=== PATIENT | male | born 1985 | race Two or more races ===

== ENCOUNTER 2017-10-17 22:46 | Emergency (ER) | payer OTHER ==
[~2017-10-17] VITALS: Ht 185.4 cm; Wt 77.1 kg
--- NOTE | 2017-10-17 22:58 | NUR ---
Dr. Villarreal at bedside for MSE.
[2017-10-17] MEDS ORDERED: LORAZEPAM 0.5 MG TABLET PO ONE (23:00)
[2017-10-17] MEDS ORDERED: LORAZEPAM 1 MG TABLET ONE (23:04)
--- NOTE | 2017-10-17 23:23 | NUR ---
Patient discharged to home in stable conditon. Written and verbal after care instructions given. Patient verbalizes understanding of instructions. Patient ambulated out of ER with steady gait, no acute signs of distress, VSS, all belongings taken.
[2017-10-17 23:24] VITALS: BP 155/88
== END 2017-10-17 23:25 | disposition home or self-care (01) ==
LOC: ER 22:48
DX: F10.239 Alcohol dependence with withdrawal, unspecified (principal)
CPT/HCPCS: 99283; A4663

== ENCOUNTER 2019-03-11 18:11 | Inpatient (IN) | payer OTHER ==
[~2019-03-11] VITALS: Ht 185.4 cm; Wt 89.8 kg
[2019-03-11] MEDS ORDERED: CLID1CAP PO (18:29)
[2019-03-11] MEDS ORDERED: IV NORMAL SALINE 1000 ML BAG IV ONE (18:45)
[2019-03-11 18:53] LABS: BASOPHILS # (AUTO) 0.1 K/uL (0.0-8.0); BASOPHILS % (AUTO) 1.1 % (0.0-2.0); EOSINOPHILS % (AUTO) 0.2 % (0.0-7.0); HEMATOCRIT 41.4 % (36.7-47.1); HEMOGLOBIN 13.6 g/dL (12.5-16.3); LYMPHOCYTES # (AUTO) 1.3 K/uL (20.0-40.0); LYMPHOCYTES % (AUTO) 20.7 % (20.5-51.5); MEAN CORPUSCULAR HGB CONC 33 g/dL (32.5-36.3); MEAN CORPUSCULAR VOLUME 97.2 fL (73.0-96.2); MONOCYTES # (AUTO) 0.5 K/uL (2.0-10.0); MONOCYTES % (AUTO) 7.9 % (0.0-11.0); NEUTROPHILS # (AUTO) 4.4 K/uL (1.8-8.9); NEUTROPHILS % (AUTO) 70.1 % (38.5-71.5); PLATELET COUNT (AUTO) 287 K/uL (152-348); RED BLOOD CELL COUNT(AUTO) 4.26 MIL/uL (4.06-5.63); WHITE BLOOD COUNT (AUTO) 6.3 K/uL (3.6-10.2)
[2019-03-11] MEDS ORDERED: CHLORDIAZEPOXIDE HCL 25 MG CAPSULE PO ONE ×2 (19:00→21:00)
[2019-03-11] MEDS ORDERED: CHLORDIAZEPOXIDE HCL 25 MG CAPSULE ONE ×2 (19:02→21:07)
[2019-03-11] MEDS ORDERED: MAGNESIUM SULFATE/D5W 100 ML ONE ×2 (19:02→19:11)
[2019-03-11] MEDS: MAGNESIUM SULFATE/D5W 100 ML IV SCH ×2 (19:02→19:16)
[2019-03-11 19:06] LABS: BILIRUBIN,DIRECT 0.2 mg/dL (0.0-0.2); BILIRUBIN,TOTAL 0.6 mg/dL (0.2-1.0); CREATININE 0.9 mg/dL (0.6-1.3); POTASSIUM 3.2 mmol/L (3.5-5.1); TOTAL PROTEIN, SERUM 7.3 g/dL (6.4-8.2)
[2019-03-11 19:28] LABS: *BILIRUBIN,URIN NEGATIVE (NEGATIVE); *BLOOD, URINE NEGATIVE (NEGATIVE); *CLARITY,URINE CLEAR (CLEAR); *KETONES,URINE NEGATIVE (NEGATIVE); *UROBILINOGEN,URINE 0.2 E.U./dl (NORMAL); LEUKOCYTE ESTERASE ,URINE NEGATIVE (NEGATIVE); NITRITE, URINE NEGATIVE (NEGATIVE); PH,URINE 7.5 (5.0-8.0); UGLUCOSE NEGATIVE (NEGATIVE)
[2019-03-11 19:31] LABS: *COLOR,URINE LIGHT YELLOW (YELLOW)
[2019-03-11] MEDS ORDERED: POTASSIUM CHLORIDE 20 MEQ TAB.PRT.SR ONE (19:58)
[2019-03-11] MEDS ORDERED: POTASSIUM CHLORIDE 20 MEQ TAB.PRT.SR PO ONE (20:00)
[2019-03-11] MEDS ORDERED: POTASSIUM CHLORIDE 10 MEQ TAB.PRT.SR PO ONE (20:00)
[2019-03-11] MEDS ORDERED: MULTIVITAMINS 5 ML LIQUID UDC PO ONE (20:30)
[2019-03-11] MEDS ORDERED: FOLIC ACID 5 MG/ML VIAL IV ONE ×2 (20:30→20:34)
[2019-03-11] MEDS ORDERED: THIAMINE HCL 200 MG/2 ML VIAL IV ONE (20:30)
[2019-03-11] MEDS ORDERED: THIAMINE HCL 200 MG/2 ML VIAL ONE (20:34)
[2019-03-11] MEDS ORDERED: VALA500T34 PO (21:04)
[2019-03-11] MEDS ORDERED: ACETAMINOPHEN 325 MG TABLET PO PRN (21:45)
[2019-03-11] MEDS ORDERED: Z GUARD REMEDY PASTE 57 GM TUBE TOP PRN (21:45)
[2019-03-11] MEDS ORDERED: MULTIVITAMINS,THERAPEUTIC TABLET PO SCH (21:45)
[2019-03-11] MEDS ORDERED: ONDANSETRON 4 MG/2 ML VIAL IV PRN (21:45)
[2019-03-11] MEDS: IV NS 1000 ML 1,000 ML IV PRN (22:13)
[2019-03-11 22:30] VITALS: BP 154/77
[2019-03-11] MEDS: LORAZEPAM 2 MG/1 ML VIAL IV PRN (23:03)
[2019-03-12 00:04] VITALS: BP 153/72
[2019-03-12] MEDS: LORAZEPAM 2 MG/1 ML VIAL IV PRN ×3 (03:37→16:52)
[2019-03-12 04:00] VITALS: BP 140/77
[2019-03-12 07:11] LABS: BASOPHILS # (AUTO) 0.1 K/uL (0.0-8.0); BASOPHILS % (AUTO) 1.2 % (0.0-2.0); EOSINOPHILS # (AUTO) 0.1 K/uL (0.0-0.7); EOSINOPHILS % (AUTO) 1.8 % (0.0-7.0); HEMATOCRIT 42.2 % (36.7-47.1); LYMPHOCYTES # (AUTO) 1.9 K/uL (20.0-40.0); LYMPHOCYTES % (AUTO) 29.4 % (20.5-51.5); MEAN CORPUSCULAR HEMOGLOBIN 32.1 uug (23.8-33.4); MEAN CORPUSCULAR HGB CONC 33 g/dL (32.5-36.3); MEAN CORPUSCULAR VOLUME 96.9 fL (73.0-96.2); MONOCYTES # (AUTO) 0.6 K/uL (2.0-10.0); MONOCYTES % (AUTO) 9.5 % (0.0-11.0); NEUTROPHILS # (AUTO) 3.7 K/uL (1.8-8.9); NEUTROPHILS % (AUTO) 58.1 % (38.5-71.5); PLATELET COUNT (AUTO) 273 K/uL (152-348); RED BLOOD CELL COUNT(AUTO) 4.36 MIL/uL (4.06-5.63); WHITE BLOOD COUNT (AUTO) 6.3 K/uL (3.6-10.2)
[2019-03-12 07:26] LABS: THYROID STIMULATING HORMONE 1.645 mIU/mL (0.358-3.740)
[2019-03-12 07:43] LABS: CREATININE 0.9 mg/dL (0.6-1.3); MAGNESIUM 2.1 mg/dL (1.8-2.4); PHOSPHOROUS 3.3 mg/dL (2.5-4.9); POTASSIUM 3.6 mmol/L (3.5-5.1)
[2019-03-12] MEDS ORDERED: THIAMINE HCL 100 MG TABLET PO ONE (09:00)
[2019-03-12] MEDS ORDERED: CHLORDIAZEPOXIDE HCL 25 MG CAPSULE PO ONE (09:00)
[2019-03-12] MEDS ORDERED: VALACYCLOVIR HCL 500 MG TABLET PO SCH (09:00)
[2019-03-12] MEDS ORDERED: PANTOPRAZOLE SODIUM 40 MG VIAL IV SCH (09:00)
[2019-03-12] MEDS ORDERED: FOLIC ACID 1 MG TABLET PO ONE (09:00)
[2019-03-12 11:41] VITALS: BP 147/90
[2019-03-12] MEDS ORDERED: CHLO25CA22 PO (12:26)
[2019-03-12 15:10] VITALS: BP 137/77
[2019-03-12] MEDS: IV NS 1000 ML 1,000 ML IV PRN (16:42)
== END 2019-03-12 19:30 | disposition home or self-care (01) | DRG 897 ==
LOC: ER 18:12 → TELE3 21:40
PROVIDERS: ADMIT Registered Nurse; ATTEND Registered Nurse
DX: F10.239 Alcohol dependence with withdrawal, unspecified (principal); E87.1 Hypo-osmolality and hyponatremia; Y90.0 Blood alcohol level of less than 20 mg/100 ml; E87.6 Hypokalemia; F41.9 Anxiety disorder, unspecified; F12.90 Cannabis use, unspecified, uncomplicated; R94.31 Abnormal electrocardiogram [ECG] [EKG]; R00.2 Palpitations
CPT/HCPCS: 36415; 83690; 83735; 84100; 84443; 85025; 93005; A4663; C9113; G0378; G0480; J2060; J3411; J3475; J3490; J7030